=== PATIENT | female | born 1950 | race Asian ===

== ENCOUNTER 2025-04-24 10:14 | Day surgery (SDC) | payer MEDICARE ==
[~2025-04-24] VITALS: Ht 152.4 cm; Wt 46.4 kg
[2025-04-24] VITALS (7 sets, daily range): BP systolic 113–143; BP diastolic 52–65; PULSE 45–58; RESP 12–18; O2SAT 97–99
[~2025-04-24 10:14] MED LIST: ATOR20TA66 PO; BENZ200C53 PO; ESTR-8 PO; ESZO1TAB13 PO; FLUT16SP26; GABA-530; NEBI10TA13; ONDA-243 PO; PANT40TA54 PO; PRE5T
[2025-04-24] MEDS ORDERED: NEBI10TA10 PO (10:58)
[2025-04-24] MEDS ORDERED: propofol inj 20 ML IV ONE (11:55)
== END 2025-04-24 12:38 | disposition home or self-care (01) ==
LOC: GI LAB 10:14
PROVIDERS: ATTEND Internal Medicine Gastroenterology
DX: K30 Functional dyspepsia (principal); K21.9 Gastro-esophageal reflux disease without esophagitis; K29.70 Gastritis, unspecified, without bleeding; K31.89 Other diseases of stomach and duodenum; K31.A0 Gastric intestinal metaplasia, unspecified; I10 Essential (primary) hypertension; E78.5 Hyperlipidemia, unspecified; Z98.41 Cataract extraction status, right eye; Z98.42 Cataract extraction status, left eye; Z88.5 Allergy status to narcotic agent; Z88.1 Allergy status to other antibiotic agents; Z91.040 Latex allergy status
CPT/HCPCS: 43239; 88305; 88342; A4620; J2704; J7040; Z7512

== ENCOUNTER 2025-06-15 08:39 | Outpatient (CLI) | payer MEDICARE ==
[~2025-06-15 08:39] MED LIST changes: -BENZ200C53 PO; -ESZO1TAB13 PO; +NEBI10TA10 PO; -NEBI10TA13; -ONDA-243 PO; -PRE5T
--- NOTE | 2025-06-15 11:36 | RADIOLOGY REPORT ---
INDICATION: FUNCTIONAL DYSPEPSIA;GERD TECHNIQUE: Multiple real-time sonographic images of the abdomen were obtained. COMPARISON: None FINDINGS: The liver is homogenous in echogenicity. No intrahepatic biliary ductal dilatation is noted. No hepatic masses were seen. The gallbladder wall measures 0.4 cm and is 0.4 Gallstones are noted. The common duct measures 0.3 cm and is normal in size. No pericholecystic fluid is noted. The right kidney measures 10cm and is normal in size. The right renal echogenicity, contour and cortical thickness are within normal limits. No hydronephrosis or large masses are seen. The left kidney measures 9cm and is normal in size. The left renal echogenicity, contour, and cortical thickness are within normal limits. No hydronephrosis or large masses are seen. The spleen measures 8cm, within normal limits. The echogenicity is within normal limits. The pancreas is not well visualized. The visualized portions of the IVC and aorta are grossly unremarkable. IMPRESSION: Gallstones. Gallbladder wall thickening. Correlate for Acute cholecystitis
== END 2025-06-15 23:59 | disposition home or self-care (01) ==
LOC: RAD 08:39
PROVIDERS: ATTEND Internal Medicine Gastroenterology
DX: K80.20 Calculus of gallbladder without cholecystitis without obstruction (principal); K30 Functional dyspepsia; K21.9 Gastro-esophageal reflux disease without esophagitis
CPT/HCPCS: 76700